=== PATIENT | female | born 1985 | race Caucasian/White ===

== ENCOUNTER 2016-10-30 10:19 | Emergency (ER) | payer MEDICAID ==
[~2016-10-30] VITALS: Ht 154.9 cm; Wt 69.5 kg
[2016-10-30] MEDS ORDERED: MECL-111 PO (10:58)
[2016-10-30] MEDS ORDERED: ONDANSETRON HCL 4 MG/2 ML VIAL IVP ONE (12:00)
[2016-10-30] MEDS ORDERED: MORPHINE SULFATE 2 MG/ML SYRINGE IVP ONE (12:00)
[2016-10-30] MEDS ORDERED: SODIUM CHLORIDE 0.9% 1,000 ML IV ONE (12:00)
[2016-10-30 12:18] LABS: BASOPHILS % (AUTO) 0.4 % (0.0-2.0); EOSINOPHILS % (AUTO) 3.6 % (1.0-6.0); HEMATOCRIT 37.7 % (36-46); HEMOGLOBIN 11.7 g/dL (12.0-16.0); LYMPHOCYTES # (AUTO) 1.5 K/uL (1.0-4.8); LYMPHOCYTES % (AUTO) 19.9 % (22.0-44.0); MEAN CORPUSCULAR HEMOGLOBIN 23.6 pg (26.0-34.0); MEAN CORPUSCULAR HGB CONC 31.1 G/dL (31.0-37.0); MEAN CORPUSCULAR VOLUME 76 fL (80-100); MONOCYTES # (AUTO) 0.6 K/uL (0.1-1.0); MONOCYTES % (AUTO) 8.4 % (2.0-9.0); NEUTROPHILS # (AUTO) 5.2 K/uL (1.8-7.7); NEUTROPHILS % (AUTO) 67.7 % (40.0-70.0); PLATELET COUNT (AUTO) 271 K/uL (150-450); RED BLOOD CELL COUNT(AUTO) 4.97 MIL/uL (4.00-5.20); RED CELL DISTRIBUTION WIDTH 19.3 % (11.5-14.5); WHITE BLOOD COUNT (AUTO) 7.7 K/uL (4.5-11.0)
[2016-10-30 12:21] LABS: APPEARANCE,URINE CLOUDY (CLEAR); GLUCOSE, URINE (UA) NEGATIVE (NEGATIVE); KETONES,URINE NEGATIVE (NEGATIVE); LEUKOCYTE ESTERASE ,URINE SMALL (NEGATIVE); OCCULT BLOOD,URINE MODERATE (NEGATIVE); PH,URINE 5.5 (5.0-8.0); PROTEIN,URINE NEGATIVE (NEGATIVE)
[2016-10-30 12:24] LABS: ANION GAP 6 mmol/L (8-16); CALCIUM, TOTAL 8.9 mg/dL (8.8-10.5); CARBON DIOXIDE 31 mmol/L (22-29); CHLORIDE 99 mmol/L (98-107); CREATININE 0.91 mg/dL (0.60-1.30); GLOMERULAR FILTR. RATE CALC > 60 mL/min (>60); POTASSIUM 4.3 mmol/L (3.5-5.1); SODIUM SERUM 136 mmol/L (136-145); UREA NITROGEN, BLOOD 21 mg/dL (7-18)
[2016-10-30 12:29] LABS: ALANINE AMINOTRANSFERASE 35 U/L (12-78); ALBUMIN 4.2 g/dL (3.4-5.0); ASPARTATE AMINOTRANSFERASE 30 U/L (15-37); BILIRUBIN,TOTAL 0.3 mg/dL (0.1-1.0); TOTAL PROTEIN, SERUM 8.7 g/dL (6.4-8.2)
[2016-10-30 12:38] LABS: SQUAMOUS EPITHELIAL CELL,UR Few /LPF (None Seen)
[2016-10-30 12:43] LABS: RBC MORPHOLOGY COMMENT ABNORMAL RBC MORPH
[2016-10-30] MEDS ORDERED: KETOROLAC TROMETHAMINE 30 MG/ML VIAL IVP ONE (16:30)
[2016-10-30] MEDS ORDERED: CefTRIAXone 1 GM/DEXTROSE 50 ML IV ONE (16:30)
[2016-10-30 17:30] VITALS: BP 115/82
== END 2016-10-30 17:34 | disposition home or self-care (01) ==
LOC: EMS 10:23
DX: E28.2 Polycystic ovarian syndrome (principal); N39.0 Urinary tract infection, site not specified
CPT/HCPCS: 36415; 76856; 80053; 81001; 84703; 85025; 87077; 87086; 87210; 87491; 87591; 96361; 96365; 96375; 99285; J0696; J1885; J2270; J2405; J7030

== ENCOUNTER 2016-12-03 15:03 | Emergency (ER) | payer MEDICAID ==
[~2016-12-03] VITALS: Ht 152.4 cm; Wt 153.0 kg
[~2016-12-03 15:03] MED LIST: MECL-111 PO
[2016-12-03 16:18] LABS: BASOPHILS % (AUTO) 0.4 % (0.0-2.0); EOSINOPHILS % (AUTO) 2.4 % (1.0-6.0); HEMATOCRIT 38.8 % (36-46); LYMPHOCYTES # (AUTO) 1.6 K/uL (1.0-4.8); LYMPHOCYTES % (AUTO) 20.1 % (22.0-44.0); MEAN CORPUSCULAR HEMOGLOBIN 26.8 pg (26.0-34.0); MEAN CORPUSCULAR HGB CONC 33.6 G/dL (31.0-37.0); MEAN CORPUSCULAR VOLUME 80 fL (80-100); MONOCYTES # (AUTO) 0.6 K/uL (0.1-1.0); MONOCYTES % (AUTO) 7.9 % (2.0-9.0); NEUTROPHILS # (AUTO) 5.6 K/uL (1.8-7.7); NEUTROPHILS % (AUTO) 69.2 % (40.0-70.0); PLATELET COUNT (AUTO) 276 K/uL (150-450); RED BLOOD CELL COUNT(AUTO) 4.87 MIL/uL (4.00-5.20); RED CELL DISTRIBUTION WIDTH 21.5 % (11.5-14.5)
[2016-12-03 16:33] LABS: CALCIUM, TOTAL 8.7 mg/dL (8.8-10.5); CREATININE 1.24 mg/dL (0.60-1.30)
[2016-12-03 16:39] LABS: ALBUMIN 4.2 g/dL (3.4-5.0); BILIRUBIN,TOTAL 0.7 mg/dL (0.1-1.0); TOTAL PROTEIN, SERUM 8.2 g/dL (6.4-8.2)
[2016-12-03 17:48] LABS: RBC MORPHOLOGY COMMENT ABNORMAL RBC MORPH
[2016-12-03 17:53] LABS: APPEARANCE,URINE CLOUDY (CLEAR); GLUCOSE, URINE (UA) NEGATIVE (NEGATIVE); KETONES,URINE NEGATIVE (NEGATIVE); LEUKOCYTE ESTERASE ,URINE LARGE (NEGATIVE); OCCULT BLOOD,URINE TRACE (NEGATIVE); PROTEIN,URINE NEGATIVE (NEGATIVE)
[2016-12-03 17:54] LABS: ADD UA MICROSCOPIC YES
[2016-12-03 18:02] LABS: SQUAMOUS EPITHELIAL CELL,UR Moderate /LPF (None Seen)
[2016-12-03 19:20] VITALS: BP 125/83
== END 2016-12-03 19:39 | disposition home or self-care (01) ==
LOC: EMS 15:03
DX: O23.41 Unspecified infection of urinary tract in pregnancy, first trimester (principal); Z3A.01 Less than 8 weeks gestation of pregnancy
CPT/HCPCS: 76801; 76817; 87086; 99285

== ENCOUNTER 2017-04-13 09:20 | Observation (INO) | payer MEDICAID ==
[~2017-04-13] VITALS: Ht 152.4 cm; Wt 72.6 kg
[2017-04-13] MEDS ORDERED: PREN1TAB80 PO (09:34)
[2017-04-13 09:37] VITALS: BP 119/72
[2017-04-13 11:03] LABS: BASOPHILS # (AUTO) 0.03 K/uL (0.00-0.20); BASOPHILS % (AUTO) 0.3 % (0.0-2.0); EOSINOPHILS # (AUTO) 0.09 K/uL (0.00-0.70); EOSINOPHILS % (AUTO) 1.08 % (1.0-6.0); HEMATOCRIT 36.4 % (36-46); HEMOGLOBIN 12.3 g/dL (12.0-16.0); LYMPHOCYTES # (AUTO) 1.2 K/uL (1.0-4.8); LYMPHOCYTES % (AUTO) 14.3 % (22.0-44.0); MEAN CORPUSCULAR HGB CONC 33.7 G/dL (31.0-37.0); MEAN CORPUSCULAR VOLUME 92 fL (80-100); MONOCYTES # (AUTO) 0.6 K/uL (0.1-1.0); MONOCYTES % (AUTO) 7.2 % (2.0-9.0); NEUTROPHILS # (AUTO) 6.6 K/uL (1.8-7.7); NEUTROPHILS % (AUTO) 77.1 % (40.0-70.0); PLATELET COUNT (AUTO)-OB 191 K/uL (150-450); RED BLOOD CELL COUNT(AUTO) 3.95 MIL/uL (4.00-5.20); RED CELL DISTRIBUTION WIDTH 14.8 % (11.5-14.5)
[2017-04-13 11:18] LABS: ANION GAP 8 mmol/L (8-16); CALCIUM, TOTAL 8.1 mg/dL (8.8-10.5); CARBON DIOXIDE 26 mmol/L (22-29); CHLORIDE 102 mmol/L (98-107); CREATININE 0.73 mg/dL (0.60-1.30); GLOMERULAR FILTR. RATE CALC > 60 mL/min (>60); GLUCOSE,RANDOM 71 mg/dL (70-110); POTASSIUM 3.7 mmol/L (3.5-5.1); SODIUM SERUM 136 mmol/L (136-145); UREA NITROGEN, BLOOD 14 mg/dL (7-18)
[2017-04-13 11:19] LABS: APPEARANCE,URINE CLOUDY (CLEAR); BILIRUBIN,URINE NEGATIVE (NEGATIVE); GLUCOSE, URINE (UA) NEGATIVE (NEGATIVE); KETONES,URINE NEGATIVE (NEGATIVE); LEUKOCYTE ESTERASE ,URINE MODERATE (NEGATIVE); NITRATE,URINE NEGATIVE (NEGATIVE); OCCULT BLOOD,URINE NEGATIVE (NEGATIVE); PH,URINE 6.5 (5.0-8.0); PROTEIN,URINE NEGATIVE (NEGATIVE); UROBILINOGEN,URINE 0.2 mg/dL (<=1.0)
[2017-04-13 11:24] LABS: ALANINE AMINOTRANSFERASE 24 U/L (12-78); ALBUMIN 2.8 g/dL (3.4-5.0); ALKALINE PHOSPHATASE 62 U/L (46-116); AMYLASE 61 U/L (25-115); ASPARTATE AMINOTRANSFERASE 25 U/L (15-37); BILIRUBIN,TOTAL 0.4 mg/dL (0.1-1.0); LIPASE 168 U/L (73-393); TOTAL PROTEIN, SERUM 6.9 g/dL (6.4-8.2)
[2017-04-13 11:40] LABS: BACTERIA,URINE Many /HPF (None Seen); RBC,URINE 0-2 /HPF (0-2); SQUAMOUS EPITHELIAL CELL,UR Many /LPF (None Seen)
== END 2017-04-13 12:15 | disposition home or self-care (01) ==
LOC: 4S 09:20
PROVIDERS: ADMIT Obstetrics & Gynecology; ATTEND Obstetrics & Gynecology
DX: O26.892 Other specified pregnancy related conditions, second trimester (principal); R10.30 Lower abdominal pain, unspecified; Z3A.22 22 weeks gestation of pregnancy
CPT/HCPCS: 36415; 59025; 80053; 81001; 82150; 83690; 85025; 87086; G0378

== ENCOUNTER 2018-08-14 16:13 | Emergency (ER) | payer MEDICAID ==
[~2018-08-14] VITALS: Ht 154.9 cm; Wt 72.7 kg
[~2018-08-14 16:13] MED LIST changes: -MECL-111 PO; +PREN1TAB80 PO
[2018-08-14 17:06] LABS: BASOPHILS % (AUTO) 0.9 % (0.0-2.0); EOSINOPHILS % (AUTO) 3.6 % (1.0-6.0); HEMATOCRIT 36.2 % (36-46); HEMOGLOBIN 11.9 g/dL (12.0-16.0); LYMPHOCYTES # (AUTO) 2.2 K/uL (1.0-4.8); LYMPHOCYTES % (AUTO) 25.1 % (22.0-44.0); MEAN CORPUSCULAR VOLUME 82 fL (80-100); MONOCYTES # (AUTO) 0.7 K/uL (0.1-1.0); MONOCYTES % (AUTO) 7.5 % (2.0-9.0); NEUTROPHILS # (AUTO) 5.6 K/uL (1.8-7.7); NEUTROPHILS % (AUTO) 62.9 % (40.0-70.0); PLATELET COUNT (AUTO) 291 K/uL (150-450); RED BLOOD CELL COUNT(AUTO) 4.41 MIL/uL (4.00-5.20); RED CELL DISTRIBUTION WIDTH 15.7 % (11.5-14.5)
[2018-08-14 17:07] LABS: APPEARANCE,URINE CLEAR (CLEAR); BILIRUBIN,URINE NEGATIVE (NEGATIVE); GLUCOSE, URINE (UA) NEGATIVE (NEGATIVE); KETONES,URINE NEGATIVE (NEGATIVE); LEUKOCYTE ESTERASE ,URINE SMALL (NEGATIVE); NITRATE,URINE NEGATIVE (NEGATIVE); OCCULT BLOOD,URINE NEGATIVE (NEGATIVE); PROTEIN,URINE NEGATIVE (NEGATIVE); UROBILINOGEN,URINE 0.2 mg/dL (<=1.0)
[2018-08-14 17:15] LABS: ANION GAP 6 mmol/L (8-16); CALCIUM, TOTAL 8.6 mg/dL (8.8-10.5); CARBON DIOXIDE 28 mmol/L (22-29); CHLORIDE 100 mmol/L (98-107); CREATININE 0.98 mg/dL (0.60-1.30); GLOMERULAR FILTR. RATE CALC > 60 mL/min (>60); GLUCOSE,RANDOM 86 mg/dL (70-110); POTASSIUM 3.8 mmol/L (3.5-5.1); SODIUM SERUM 134 mmol/L (136-145); UREA NITROGEN, BLOOD 17 mg/dL (7-18)
[2018-08-14 17:28] LABS: ALANINE AMINOTRANSFERASE 32 U/L (12-78); ALBUMIN 3.7 g/dL (3.4-5.0); ALKALINE PHOSPHATASE 63 U/L (46-116); ASPARTATE AMINOTRANSFERASE 40 U/L (15-37); BILIRUBIN,TOTAL 0.5 mg/dL (0.1-1.0); HCG,QUANTITATIVE < 1 mIU/mL (0-6); LIPASE 235 U/L (73-393)
[2018-08-14 17:35] LABS: BACTERIA,URINE Few /HPF (None Seen); RBC,URINE 0-2 /HPF (0-2); SQUAMOUS EPITHELIAL CELL,UR Moderate /LPF (None Seen)
[2018-08-14] MEDS ORDERED: LIDOCAINE 5% TRANSDERMAL PATCH TD ONE (19:30)
[2018-08-14] MEDS ORDERED: CYCLOBENZAPRINE HCL 10 MG TABLET PO ONE (19:30)
[2018-08-14] MEDS ORDERED: IBUPROFEN 600 MG TABLET PO ONE (19:30)
[2018-08-14 20:26] VITALS: BP 127/65
== END 2018-08-14 20:27 | disposition home or self-care (01) ==
LOC: EMS 16:14
DX: N39.0 Urinary tract infection, site not specified (principal); M54.9 Dorsalgia, unspecified
CPT/HCPCS: 87086

== ENCOUNTER 2018-12-13 15:08 | Emergency (ER) | payer MEDICAID ==
[~2018-12-13] VITALS: Ht 154.9 cm; Wt 72.7 kg
[2018-12-13] MEDS ORDERED: ACET-2247 PO (15:12)
[2018-12-13] MEDS ORDERED: TraMADol HCL 50 MG TABLET PO ONE (16:15)
[2018-12-13 16:16] VITALS: BP 122/66
== END 2018-12-13 18:02 | disposition home or self-care (01) ==
LOC: EMS 15:08
DX: K04.7 Periapical abscess without sinus (principal); K02.9 Dental caries, unspecified

== ENCOUNTER 2018-12-18 16:13 | Emergency (ER) | payer MEDICAID ==
[~2018-12-18] VITALS: Ht 152.4 cm; Wt 72.7 kg
[~2018-12-18 16:13] MED LIST changes: +ACET-2247 PO; -PREN1TAB80 PO
[2018-12-18] MEDS ORDERED: KETOROLAC TROMETHAMINE 60 MG/2 ML VIAL IM ONE (17:15)
[2018-12-18] MEDS ORDERED: LIDOCAINE 5% TRANSDERMAL PATCH TD ONE (17:15)
[2018-12-18 17:16] VITALS: BP 102/68
== END 2018-12-18 18:14 | disposition home or self-care (01) ==
LOC: EMS 16:14
DX: M54.5 Low back pain (principal)
CPT/HCPCS: 96372; 99283; J1885

== ENCOUNTER 2019-05-12 08:53 | Emergency (ER) | payer MEDICAID ==
[~2019-05-12] VITALS: Ht 152.4 cm; Wt 70.5 kg
[2019-05-12 10:02] LABS: BASOPHILS % (AUTO) 1.1 % (0.0-2.0); EOSINOPHILS % (AUTO) 2.8 % (1.0-6.0); HEMATOCRIT 35.2 % (36-46); HEMOGLOBIN 11.5 g/dL (12.0-16.0); LYMPHOCYTES # (AUTO) 1.8 K/uL (1.0-4.8); LYMPHOCYTES % (AUTO) 20.5 % (22.0-44.0); MEAN CORPUSCULAR HEMOGLOBIN 25.1 pg (26.0-34.0); MEAN CORPUSCULAR HGB CONC 32.5 G/dL (31.0-37.0); MEAN CORPUSCULAR VOLUME 77 fL (80-100); MONOCYTES # (AUTO) 0.6 K/uL (0.1-1.0); MONOCYTES % (AUTO) 7.3 % (2.0-9.0); NEUTROPHILS # (AUTO) 5.9 K/uL (1.8-7.7); NEUTROPHILS % (AUTO) 68.3 % (40.0-70.0); PLATELET COUNT (AUTO) 290 K/uL (150-450); RED BLOOD CELL COUNT(AUTO) 4.57 MIL/uL (4.00-5.20); RED CELL DISTRIBUTION WIDTH 16.8 % (11.5-14.5)
[2019-05-12 10:12] LABS: ANION GAP 6 mmol/L (8-16); CALCIUM, TOTAL 8.7 mg/dL (8.8-10.5); CARBON DIOXIDE 29 mmol/L (22-29); CHLORIDE 102 mmol/L (98-107); CREATININE 0.86 mg/dL (0.60-1.30); GLOMERULAR FILTR. RATE CALC > 60 mL/min (>60); GLUCOSE,RANDOM 93 mg/dL (70-110); POTASSIUM 3.9 mmol/L (3.5-5.1); SODIUM SERUM 137 mmol/L (136-145); UREA NITROGEN, BLOOD 14 mg/dL (7-18)
[2019-05-12 10:12] LABS: APPEARANCE,URINE CLOUDY (CLEAR); BILIRUBIN,URINE NEGATIVE (NEGATIVE); GLUCOSE, URINE (UA) NEGATIVE (NEGATIVE); KETONES,URINE NEGATIVE (NEGATIVE); LEUKOCYTE ESTERASE ,URINE NEGATIVE (NEGATIVE); NITRATE,URINE POSITIVE (NEGATIVE); OCCULT BLOOD,URINE NEGATIVE (NEGATIVE); PH,URINE 5.5 (5.0-8.0); PROTEIN,URINE NEGATIVE (NEGATIVE); UROBILINOGEN,URINE 0.2 mg/dL (<=1.0)
[2019-05-12] MEDS ORDERED: MORPHINE SULFATE 4 MG/ML SYRINGE IVP ONE (10:15)
[2019-05-12] MEDS ORDERED: ONDANSETRON HCL 4 MG/2 ML VIAL IVP ONE (10:15)
[2019-05-12 10:20] LABS: RBC,URINE None Seen /HPF (0-2); WBC,URINE 0-2 /HPF (0-5)
[2019-05-12 10:21] LABS: BACTERIA,URINE Many /HPF (None Seen); SQUAMOUS EPITHELIAL CELL,UR Moderate /LPF (None Seen)
[2019-05-12 10:25] LABS: ALANINE AMINOTRANSFERASE 41 U/L (12-78); ALBUMIN 3.8 g/dL (3.4-5.0); ALKALINE PHOSPHATASE 80 U/L (46-116); ASPARTATE AMINOTRANSFERASE 40 U/L (15-37); BILIRUBIN,TOTAL 0.3 mg/dL (0.1-1.0); HCG,QUANTITATIVE < 1 mIU/mL (0-6); LIPASE 171 U/L (73-393); TOTAL PROTEIN, SERUM 8.3 g/dL (6.4-8.2)
[2019-05-12] MEDS ORDERED: KETOROLAC TROMETHAMINE 30 MG/ML VIAL IVP ONE (11:30)
[2019-05-12 14:15] VITALS: BP 126/70
== END 2019-05-12 14:38 | disposition home or self-care (01) ==
LOC: EMS 08:54
DX: S39.012A Strain of muscle, fascia and tendon of lower back, initial encounter (principal); N39.0 Urinary tract infection, site not specified; X50.9XXA Other and unspecified overexertion or strenuous movements or postures, initial encounter; Y93.89 Activity, other specified; Y92.89 Other specified places as the place of occurrence of the external cause; Y99.8 Other external cause status
CPT/HCPCS: 36415; 74176; 76856; 80053; 81001; 83690; 84702; 85025; 87086; 96374; 96375; 99284; J1885; J2270; J2405

== ENCOUNTER 2021-05-29 14:43 | Emergency (ER) | payer MEDICAID ==
[~2021-05-29] VITALS: Ht 154.9 cm; Wt 72.0 kg
[2021-05-29 15:12] LABS: GLUCOMETER DEV NAME(LOC) ERT.5; GLUCOSE,POINT OF CARE 98 MG/DL (70-110)
[2021-05-29] MEDS ORDERED: ONDANSETRON HCL 4 MG TABLET PO ONE (15:30)
[2021-05-29] MEDS ORDERED: LORazepam 2 MG TABLET PO ONE (15:30)
[2021-05-29 19:30] VITALS: BP 121/74
== END 2021-05-29 20:46 | disposition home or self-care (01) ==
LOC: EMS 14:43
DX: F41.9 Anxiety disorder, unspecified (principal); M54.2 Cervicalgia
CPT/HCPCS: 82962; 99283; Q0162

== ENCOUNTER 2021-09-20 08:42 | Emergency (ER) | payer MEDICAID ==
[~2021-09-20] VITALS: Ht 157.5 cm; Wt 74.1 kg
[2021-09-20] MEDS: KETOROLAC TROMETHAMINE 60 MG/2 ML VIAL IM ONE (09:30)
[2021-09-20] MEDS: BACLOFEN 10 MG TABLET PO ONE (09:30)
[2021-09-20] MEDS: ACETAMINOPHEN 500 MG TABLET PO ONE (09:31)
[2021-09-20 10:32] VITALS: BP 112/68
[2021-09-20] MEDS ORDERED: ACET-66 PO (10:32)
[2021-09-20] MEDS ORDERED: BACL10TA PO (10:32)
[2021-09-20] MEDS ORDERED: IBUP-1554 PO (10:32)
== END 2021-09-20 10:55 | disposition home or self-care (01) ==
LOC: EMS 08:42
DX: S39.012A Strain of muscle, fascia and tendon of lower back, initial encounter (principal); Z86.69 Personal history of other diseases of the nervous system and sense organs; X58.XXXA Exposure to other specified factors, initial encounter; Y93.89 Activity, other specified; Y92.89 Other specified places as the place of occurrence of the external cause; Y99.8 Other external cause status
CPT/HCPCS: 81025; 96372; 99283; J1885; Z7502; Z7610

== ENCOUNTER 2021-12-23 08:25 | Emergency (ER) | payer MEDICAID ==
[~2021-12-23] VITALS: Ht 162.6 cm; Wt 72.7 kg
[~2021-12-23 08:25] MED LIST changes: +ACET-66 PO; +BACL10TA PO; +IBUP-1554 PO
[2021-12-23 10:00] VITALS: BP 122/82
== END 2021-12-23 10:10 | disposition home or self-care (01) ==
LOC: EMS 08:26
DX: G56.02 Carpal tunnel syndrome, left upper limb (principal); Z79.899 Other long term (current) drug therapy
CPT/HCPCS: 99283

== ENCOUNTER 2022-04-22 10:43 | Emergency (ER) | payer MEDICAID ==
[~2022-04-22] VITALS: Ht 152.4 cm; Wt 74.5 kg
[2022-04-22] MEDS ORDERED: SODIUM CHLORIDE 0.9% 1,000 ML IV ONE (11:30)
[2022-04-22] MEDS ORDERED: LORazepam 2 MG/ML VIAL IM ONE (12:30)
[2022-04-22] MEDS ORDERED: LORA-1000 PO (14:08)
[2022-04-22 14:23] VITALS: BP 131/76
== END 2022-04-22 14:32 | disposition home or self-care (01) ==
LOC: EMS 10:55
DX: F40.248 Other situational type phobia (principal); R20.0 Anesthesia of skin
CPT/HCPCS: 99283; 96372; J2060

== ENCOUNTER 2022-09-15 10:18 | Emergency (ER) | payer MEDICAID ==
[~2022-09-15] VITALS: Ht 160 cm; Wt 72.7 kg
[~2022-09-15 10:18] MED LIST changes: -ACET-2247 PO; -ACET-66 PO; -BACL10TA PO; -IBUP-1554 PO; +LORA-1000 PO
[2022-09-15] MEDS ORDERED: ACET325S20 PR (10:22)
[2022-09-15] MEDS ORDERED: ACET-2247 PO (10:23)
[2022-09-15 12:07] VITALS: BP 122/74
== END 2022-09-15 16:55 | disposition left against medical advice (07) ==
LOC: EMS 10:18
DX: M25.511 Pain in right shoulder (principal); Z53.21 Procedure and treatment not carried out due to patient leaving prior to being seen by health care provider
CPT/HCPCS: 99281; Z7502

== ENCOUNTER 2023-02-12 11:05 | Emergency (ER) | payer MEDICAID ==
[~2023-02-12] VITALS: Ht 157.5 cm; Wt 77.3 kg
[~2023-02-12 11:05] MED LIST changes: +ACET-2247 PO; -LORA-1000 PO
[2023-02-12 11:23] VITALS: TEMP 99.9
[2023-02-12] MEDS ORDERED: HYDROCODONE/ACETAMINOPHEN 5-325 MG TABLET PO ONE (12:30)
[2023-02-12] MEDS ORDERED: AMOXICILLIN TRIHYDRATE 250 MG CAPSULE PO ONE (12:30)
[2023-02-12] MEDS ORDERED: KETOROLAC TROMETHAMINE 30 MG/ML VIAL IM ONE (12:30)
[2023-02-12] MEDS ORDERED: TRAM-559 PO (13:06)
[2023-02-12] MEDS ORDERED: AMOX250C4 PO (13:06)
[2023-02-12 13:18] VITALS: BP 117/67; PULSE 92; RESP 16
== END 2023-02-12 13:23 | disposition home or self-care (01) ==
LOC: EMS 11:23
DX: K02.9 Dental caries, unspecified (principal); K08.89 Other specified disorders of teeth and supporting structures; Z98.890 Other specified postprocedural states
CPT/HCPCS: 99283; 81025; 96372; J1885

== ENCOUNTER 2023-04-18 17:41 | Emergency (ER) | payer MEDICAID ==
[~2023-04-18] VITALS: Ht 152.4 cm; Wt 75.0 kg
[~2023-04-18 17:41] MED LIST changes: -ACET-2247 PO; +AMOX250C4 PO; +TRAM-559 PO
[2023-04-18 17:48] VITALS: TEMP 98.6
[2023-04-18] MEDS ORDERED: LIDOCAINE 1% 10 ML VIAL ID ONE (20:30)
[2023-04-18] MEDS ORDERED: CEPH-558 PO (21:33)
[2023-04-18] MEDS ORDERED: TRAM-559 PO (21:33)
[2023-04-18 21:50] VITALS: BP 124/76; PULSE 78; RESP 18
== END 2023-04-18 21:55 | disposition home or self-care (01) ==
LOC: EMS 17:42
DX: S60.111A Contusion of right thumb with damage to nail, initial encounter (principal); Z98.51 Tubal ligation status; Z98.890 Other specified postprocedural states; W23.0XXA Caught, crushed, jammed, or pinched between moving objects, initial encounter; Y93.89 Activity, other specified; Y92.89 Other specified places as the place of occurrence of the external cause; Y99.8 Other external cause status
CPT/HCPCS: 99284; 73130; 11740; J3490

== ENCOUNTER 2023-10-03 21:42 | Emergency (ER) | payer SELFPAY ==
[~2023-10-03] VITALS: Ht 154.9 cm; Wt 82.0 kg
[~2023-10-03 21:42] MED LIST changes: +CEPH-558 PO; -TRAM-559 PO; +TRAM50TA5 PO
[2023-10-03 23:11] VITALS: BP 118/79; PULSE 74; RESP 12; TEMP 98.2
[2023-10-03] MEDS: OXYMETAZOLINE HCL 0.05% 15 ML NASAL SPRAY NASAL ONE (23:47)
[2023-10-03] MEDS: DiphenhydrAMINE HCL 25 MG CAPSULE PO ONE (23:47)
== END 2023-10-04 00:15 | disposition home or self-care (01) ==
LOC: EMS 21:50
DX: K12.2 Cellulitis and abscess of mouth (principal)
CPT/HCPCS: 87430; 99283

== ENCOUNTER 2023-10-11 22:49 | Emergency (ER) | payer MEDICAID ==
[~2023-10-11] VITALS: Ht 154.9 cm; Wt 76.0 kg
[2023-10-11 23:30] VITALS: TEMP 97.6
[2023-10-11 23:59] LABS: COVID AG,FIA SOURCE NASAL SWAB
[2023-10-12 00:09] LABS: SARS-COV2 (COVID) ANTIGEN,FIA Negative (Negative)
[2023-10-12 00:10] LABS: INFLUENZA TYPE A NEGATIVE FOR TYPE A (NEGATIVE); INFLUENZA TYPE B NEGATIVE FOR TYPE B (NEGATIVE)
[2023-10-12] MEDS: AMOXICILLIN TRIHYDRATE 250 MG CAPSULE PO ONE (02:01)
[2023-10-12] MEDS: IBUPROFEN 600 MG TABLET PO ONE (02:01)
[2023-10-12] MEDS ORDERED: IBUP-1492 PO (02:21)
[2023-10-12] MEDS ORDERED: AMOX500T2 PO (02:21)
[2023-10-12 03:00] VITALS: BP 116/82; PULSE 66; RESP 18
== END 2023-10-12 03:09 | disposition home or self-care (01) ==
LOC: EMS 22:51
DX: K02.9 Dental caries, unspecified (principal); Z98.51 Tubal ligation status; Z20.822 Contact with and (suspected) exposure to COVID-19; Z98.890 Other specified postprocedural states
CPT/HCPCS: 87804; 99283